=== PATIENT | male | born 1970 | race Caucasian/White ===

== ENCOUNTER 2017-09-28 07:58 | Observation (INO) | payer OTHER ==
[2017-09-28] MEDS ORDERED: NS 1,000 ML IV ONE ×2 (08:15)
--- NOTE | 2017-09-28 08:21 | CPEKG ---
Heart Rate: 85 RR Interval: 706 P-R Interval: 168 QRSD Interval: 94 QT Interval: 372 QTC Interval: 443 P [place]: 53 QRS [place]: 42 T Wave [place]: 8 EKG Severity - NORMAL ECG - EKG Impression: SINUS RHYTHM Electronically Signed By: Ishaan Gordon 28-Sep-2017 08:30:21
--- NOTE | 2017-09-28 08:26 | EDPHY ---
H & P Time Seen by Provider: 09/28/17 08:00 HPI/ROS: HPI Lightheaded, passed out. 46-year-old male by private vehicle with his . This patient reports that he takes lisinopril for hypertension. He reports that he missed the last 1-2 days. He reports that he was at home drinking last night and had 5-6 shots of vodka. He reports the because he missed the last 2 days of his lisinopril he took 2 extra doses, 20 mg tablets, last night. He then went to sleep at around 8:00 p.m. 10 9:00 p.m.. He got up early this morning to go to the bathroom. He was sitting on the toilet, then stood up, had sudden onset lightheadedness, loss consciousness and fell hitting his right flank on the side of the bathtub. His found him in the bathroom sitting up against the bathtub. No witnessed seizure activity. He denies any associated chest pain, no associated palpitations, no shortness of breath, no headache. Denies neck pain. He did not strike his head. No loss of sensation or weakness in his extremities. He reports he was concerned about his blood pressure last night because he has been under a lot of stress lately at work. This is why he took 2 extra lisinopril tablets at that time. ROS: Constitutional: No fever, no chills. As above. Eyes: No discharge. No changes in vision. ENT: No sore throat. No nasal congestion or rhinorrhea. Respiratory: No cough. No shortness of breath. Cardiac: Right sided chest wall pain, no palpitations. Gastrointestinal: No abdominal pain, no vomiting, no diarrhea. Genitourinary: No hematuria. No dysuria or increased frequency with urination. Musculoskeletal: As above. No neck pain. Denies extremity pain. Skin: No rashes. Neurological: No headache. No focal weakness or altered sensation. Past medical history: Hypertension. Social history: He reports drinking 4-6 shots of vodka nightly. He admits to doing this for some time. He does not smoke. He denies IV drugs or street drugs. He is here with his girlfriend. Physical Exam: General Appearance: Alert, he is not in distress. Mildly anxious. This patient is responding to questions appropriately and in full sentences. This patient appears well-hydrated and well-nourished. Head: Normocephalic atraumatic. Face: Facial bones are stable on palpation. Eyes: Pupils equal and round and reactive to light, no pallor or injection. No lid erythema or edema. ENT, Mouth: Mucous membranes and lips are dry. Dentition is intact. No malocclusion of the jaw. No tongue lacerations or abrasions. Pharynx is clear. The bilateral nasal canals are clear. No septal hematoma. Respiratory: There are no retractions, lungs are clear to auscultation with good air movement bilaterally. Chest wall is stable to AP and lateral palpation. Cardiovascular: Regular rate and rhythm. No murmur. Gastrointestinal: Abdomen is soft and nontender, no masses, bowel sounds normal. Neurological: Motor sensory function is intact. Cranial nerves are normal. Cerebellar function intact. Skin: Warm and dry, no rashes. No lacerations, abrasions or contusions. Musculoskeletal: Neck is supple and nontender. The trachea is midline. No midline cervical, thoracic, lumbar or sacral tenderness on palpation. No flank tenderness on palpation. Right-sided CVA tenderness and right-sided lower posterior lateral rib tenderness on palpation at the posterior axillary line. No bony step-off or deformity noted on palpation of this area but he is quite tender on palpation. No associated ecchymosis or edema. Extremities are symmetrical, full range of motion. All joints in the bilateral upper and bilateral lower extremities range without pain or impingement. No tenderness on palpation of the long bones in the bilateral upper and bilateral lower extremities. Psychiatric: No agitation. No depression. Database: EKG: EKG time is 8:19 a.m.; EKG shows a narrow complex normal sinus rhythm with a ventricular rate of 85. The CA, QRS, QT intervals are within normal limits. There are no ST-T wave changes indicative of ischemic or injury pattern. No evidence of right heart strain. No evidence of WPW, Brugada syndrome, hypertrophic cardiomyopathy. Interpreted by me. Imaging: Right-sided rib series with PA chest: Significant for displaced fractures involving the 8th and 9th ribs and nondisplaced fractures involving the 6th and 7th ribs. Some subcutaneous air is seen associated with these fractures. There is a subtle apical opacity seen on one view which may represent a small pneumothorax. Results were discussed with staff radiologist Dr. Robin Lopez. Dr. Lopez recommends a CT scan to further clarify the patient's injuries. CT abdomen and pelvis without contrast: Significant for rib fractures 6. Through 11 right-sided posterior lateral. Ribs 8 and 9 are displaced. Subcutaneous emphysema is noted in the area of the rib fractures. A small pneumothorax is noted on the right side as well. The liver and kidney on the right side appear unremarkable. Lytes were discussed with staff radiologist Dr. Tonio Santa. Procedures: Emergency department course: Vital signs reviewed. He is hypotensive at 82/61 on initial triage blood pressure. Vital signs are otherwise normal. IV was placed. He was placed on a monitor. EKG obtained and reviewed by myself. He will be started on IV normal saline secondary to hypotension and dehydration. He will be given 1-2 L over the next 1-[address] imaging to evaluate for possible renal injury verses rib fracture this/hemo/pneumothorax. 9:05 a.m., patient now declines CT imaging. He is concerned about cost. Imaging will be changed to right-sided rib series with PA chest x-ray. We are waiting on a urinalysis as well. Repeat blood pressure is 110/78. The patient has had 1 L of IV normal saline. He is starting on his 2nd. I discussed results of his EKG and blood work with him. I discussed my concern about his elevated creatinine and the need for follow-up regarding this. 10:15 a.m., patient re-evaluated. Pain is currently well controlled. I discussed the results of his blood work and urinalysis. Results of his rib series x-ray and diagnosis of rib fractures discussed. I recommended CT scan to further characterize his injuries. He is not sure he wants to do this. He would like to speak with 1 of our billing personnel to inquire as to what is covered under his insurance. 10:30 a.m., patient consents now to CT imaging. He will be sent shortly. 11:30 a.m., patient re-evaluated. Results of CT imaging discussed. He is now electing to be admitted for pain control and observation overnight as well as recheck of his pneumothorax in the morning. 11:45 a.m., spoke with Dr. Everton Reinoso, trauma surgeon on-call. Case discussed in detail. He accepts this patient for transfer to the [facility] Emergency Department and admission to the trauma service. 11:50 a.m., spoke with Dr. Renteria, hospitalist. He will consult on this patient for his renal insufficiency. The patient's remaining emergency department course under my care has been uneventful. I have filled out the appropriate transfer paperwork. He was transferred by private vehicle to [facility] Emergency Department with his who is driving. Differential Diagnosis: The differential diagnosis on this patient includes but is not limited to non intentional lisinopril overdose, right posterior lower rib contusions, rib fractures, renal laceration, pneumothorax. Suicidal ideation, pulmonary embolism, subarachnoid hemorrhage, arrhythmia, acute coronary syndrome unlikely. This represents a partial list of diagnoses considered. These considerations are based on history, physical exam, past history, reassessment and diagnostic testing. Smoking Status: Never smoked Constitutional: Initial Vital Signs Temperature (C) 36.4 C 09/28/17 08:01 Heart Rate 90 09/28/17 08:01 Respiratory Rate 16 09/28/17 08:01 Blood Pressure 82/61 L 09/28/17 08:01 O2 Sat (%) 96 09/28/17 08:01 O2 Delivery Mode Room Air Allergies/Adverse Reactions: No Known Allergies Allergy (Verified 09/28/17 08:01) Home Medications: Medication Instructions Recorded Lisinopril [Zestril 20 mg (*)] 20 mg PO DAILY 02/16/16 Amphet Asp and D/Amphet [Adderall 10 mg PO DAILY PRN 09/28/17 20 mg (*)] Aspirin [Aspirin 325 mg (*)] 325 mg PO DAILY PRN 09/28/17 Finasteride [Proscar 5 MG (*)] 5 mg PO DAILY 09/28/17 Multivitamins [Multivitamin (*)] 1 each PO DAILY 09/28/17 Zolpidem Tartrate [Ambien 5MG (*)] 10 mg PO HS PRN 09/28/17 oxyCODONE/APAP 5/325 [Percocet 1 - 2 tab PO Q4-6PRN PRN 09/28/17 5/325 (*)] Medical Decision Making - Diagnostics Imaging Results: Imaging Impressions Ribs w/Chest X-Ray 09/28/17 09:05 Impression: 1. Displaced fractures involving the posterolateral right eighth and ninth ribs , and suspected nondisplaced posterolateral right sixth and seventh rib fractures. 2. Right lower lobe pulmonary contusion and/or subsegmental atelectasis. 3. Minimal subcutaneous emphysema inferolateral right chest wall, but no pneumothorax is appreciated. Short-term follow-up chest radiography can be considered, as clinically directed. Findings were discussed with Ishaan Gordon MD at 10:10, on 09/28/2017. Chest CT 09/28/17 10:31 Impression: 1. Multiple posterolateral right rib fractures from 6th to the 11th as above. Minimal right pneumothorax. Peripheral atelectasis and contusion right lower lobe. 2. Probable mildly complex exophytic renal cortical cyst left kidney. Recommend ultrasound for further evaluation. 3. Fatty infiltration of the liver. Results called and discussed with Dr. Ishaan Gordon on September 28, 2017 at 1121 hours. - Data Points Laboratory Results: Laboratory Results 09/28/17 08:25 09/28/17 08:25 09/28/17 09/28/17 09/28/17 09:45 08:25 08:25 WBC 11.88 10^3/uL H 10^3/uL (3.80-9.50) RBC 4.46 10^6/uL 10^6/uL (4.40-6.38) Hgb 15.1 g/dL g/dL (13.7-17.5) Hct 41.3 % % (40.0-51.0) MCV 92.6 fL fL (81.5-99.8) MCH 33.9 pg pg (27.9-34.1) MCHC 36.6 g/dL g/dL (32.4-36.7) RDW 11.5 % % (11.5-15.2) Plt Count 278 10^3/uL 10^3/uL (150-400) MPV 9.0 fL fL (8.7-11.7) Neut % (Auto) 80.7 % H % (39.3-74.2) Lymph % (Auto) 13.6 % L % (15.0-45.0) [place] % (Auto) 4.3 % L % (4.5-13.0) Eos % (Auto) 0.1 % L % (0.6-7.6) Baso % (Auto) 0.5 % % (0.3-1.7) Nucleat RBC Rel Count 0.0 % % (0.0-0.2) Absolute Neuts (auto) 9.58 10^3/uL H 10^3/uL (1.70-6.50) Absolute Lymphs (auto) 1.62 10^3/uL 10^3/uL (1.00-3.00) Absolute Monos (auto) 0.51 10^3/uL 10^3/uL (0.30-0.80) Absolute Eos (auto) 0.01 10^3/uL L 10^3/uL (0.03-0.40) Absolute Basos (auto) 0.06 10^3/uL 10^3/uL (0.02-0.10) Absolute Nucleated RBC 0.00 10^3/uL 10^3/uL (0-0.01) Immature Gran % 0.8 % % (0.0-1.1) Immature Gran # 0.10 10^3/uL 10^3/uL (0.00-0.10) Sodium 133 mEq/L L mEq/L (135-145) Potassium 4.1 mEq/L mEq/L (3.5-5.2) Chloride 99 mEq/L mEq/L (97-110) Carbon Dioxide 19 mEq/l L mEq/l (22-31) Anion Gap 15 mEq/L mEq/L (8-16) BUN 20 mg/dL mg/dL (7-23) Creatinine 1.6 mg/dL H mg/dL (0.7-1.3) Estimated GFR 47 Glucose 114 mg/dL H mg/dL (70-100) Calcium 8.7 mg/dL mg/dL (8.5-10.4) Urine Color YELLOW Urine Appearance CLEAR Urine pH 6.0 (5.0-7.5) Ur Specific [place] 1.010 (1.002-1.030) Urine Protein NEGATIVE (NEGATIVE) Urine Ketones NEGATIVE (NEGATIVE) Urine Blood NEGATIVE (NEGATIVE) Urine Nitrate NEGATIVE (NEGATIVE) Urine Bilirubin NEGATIVE (NEGATIVE) Urine Urobilinogen 0.2 EU EU (0.2-1.0) Ur Leukocyte Esterase NEGATIVE (NEGATIVE) Urine RBC 0-1 /hpf /hpf (0-3) Urine WBC 1-3 /hpf /hpf (0-3) Ur Epithelial Cells 1+ /lpf /lpf (NONE-1+) Hyaline Casts 10-15 /lpf H /lpf (0-1) Granular Casts 1-3 /lpf H /lpf (0-1) Urine Mucus 1+ /lpf /lpf (NONE-1+) Urine Glucose NEGATIVE (NEGATIVE) Ethyl Alcohol 62 mg/dL H mg/dL (0-10) Medications Given: Discontinued Medications Hydromorphone HCl (Dilaudid) 0.25 mg IVP EDNOW ONE Stop: 09/28/17 11:49 Last Admin: 09/28/17 12:08 Dose: 0.25 mg Hydromorphone HCl (Dilaudid) 0.25 mg IVP EDNOW ONE Stop: 09/28/17 12:21 Last Admin: 09/28/17 12:26 Dose: 0.25 mg Sodium Chloride (Ns) 1,000 mls @ 0 mls/hr IV ONCE ONE; Wide Open PRN Reason: Protocol Stop: 09/28/17 08:16 Last Admin: 09/28/17 08:31 Dose: 1,000 mls Sodium Chloride (Ns) 1,000 mls @ 0 mls/hr IV ONCE ONE; Wide Open PRN Reason: Protocol Stop: 09/28/17 08:16 Last Admin: 09/28/17 09:15 Dose: 1,000 mls Departure - Departure Disposition: [facility] Inpatient Acute Clinical Impression: Syncope, Dehydration, Multiple fractures of ribs of right side, Pneumothorax on right, Renal insufficiency
[2017-09-28 08:34] LABS: PLATELET COUNT 278 10^3/uL (150-400)
[2017-09-28] MEDS ORDERED: HYDROmorphONE/DILAUDID 2 MG/ML INJ IVP ONE ×2 (11:48→12:20)
[2017-09-28] MEDS ORDERED: ONDANSETRON DISINTEGRATING 4 MG TAB PO PRN (14:35)
[2017-09-28] MEDS ORDERED: ZOLPIDEM TARTRATE 5 MG TAB PO PRN (14:40)
[2017-09-28] MEDS ORDERED: LORazepam 2 MG/ML INJ IVP PRN (14:42)
[2017-09-28] MEDS ORDERED: hydrALAZINE 20 MG/ML VIAL IVP PRN (14:43)
[2017-09-28] MEDS ORDERED: LISINOPRIL 20 MG TAB PO SCH (14:45)
[2017-09-28] MEDS ORDERED: NS 1,000 ML IV SCH (14:45)
--- NOTE | 2017-09-28 14:47 | PDHOSCONS ---
History and Physical - Chief Complaint syncope - History of Present Illness We have been asked by the Trauma team to provide consultation regarding this patient who had syncope and has ARF. This is a 46 yo male who had a syncopal episode after getting up from the toilet this morning and had LOC and suffered polytrauma including rib fx and small pneumothorax. He has a hx of HTN and had missed several doses but took 2 Lisinopril doses in order to catch up yesterday evening. He found his BP to be low and went to bathroom and then had a syncopal episode. No seizure activity. No CP or palpitations Lab data shows mild Leukocytosis and elevated Cr. He is making urine. BP is labile. He has received 2 L NS in the E.d. He is tachy. No e/o of P.E. on imaging. PMHx/PSHx: HTN Soc Hx: drinks ETOH 3-4 x per weeks, 3-5 drinks each time FmHx: CV disease History Information - Allergies/Home Medication List Allergies/Adverse Reactions: No Known Allergies Allergy (Verified 09/28/17 08:01) Home Medications: Lisinopril [Zestril 20 mg (*)] 20 mg PO DAILY 02/16/16 [Last Taken 09/28/17] Amphet Asp and D/Amphet [Adderall 20 mg (*)] 10 mg PO DAILY PRN 09/28/17 [Last Taken Unknown] Aspirin [Aspirin 325 mg (*)] 325 mg PO DAILY PRN 09/28/17 [Last Taken Unknown] Finasteride [Proscar 5 MG (*)] 5 mg PO DAILY 09/28/17 [Last Taken Unknown] Multivitamins [Multivitamin (*)] 1 each PO DAILY 09/28/17 [Last Taken Unknown] Zolpidem Tartrate [Ambien 5MG (*)] 10 mg PO HS PRN 09/28/17 [Last Taken Unknown] oxyCODONE/APAP 5/325 [Percocet 5/325 (*)] 1 - 2 tab PO Q4-6PRN PRN 09/28/17 [ Last Taken 09/27/17] I have personally reviewed and updated: medical history, social history - Social History Smoking Status: Never smoked Review of Systems Review of Systems: ROS: 10pt was reviewed & negative except for what was stated in HPI & below Physical Exam Physical Exam: Temp Pulse Resp BP Pulse Ox 37.0 C 108 H 19 143/93 H 97 09/28/17 13:51 09/28/17 13:51 09/28/17 13:51 09/28/17 13:51 09/28/17 13:51 Constitutional: no apparent distress, not in pain Eyes: PERRL, EOMI Ears, Nose, Mouth, Throat: moist mucous membranes, hearing normal Cardiovascular: regular rate and rhythym, No JVD, No edema Respiratory: no respiratory distress, no rales or rhonchi, clear to auscultation Gastrointestinal: normoactive bowel sounds, soft, non-tender abdomen Genitourinary: no bladder fullness Skin: warm Musculoskeletal: full muscle strength Neurologic: AAOx3 Psychiatric: interacting appropriately, not anxious, not encephalopathic, thought process linear Lymph, Heme, Immunologic: No petechiae Lab Data & Imaging Review 09/28/17 08:25 09/28/17 08:25 WBC 11.88 10^3/uL (3.80-9.50) H 09/28/17 08:25 RBC 4.46 10^6/uL (4.40-6.38) 09/28/17 08:25 Hgb 15.1 g/dL (13.7-17.5) 09/28/17 08:25 Hct 41.3 % (40.0-51.0) 09/28/17 08:25 MCV 92.6 fL (81.5-99.8) 09/28/17 08:25 MCH 33.9 pg (27.9-34.1) 09/28/17 08:25 MCHC 36.6 g/dL (32.4-36.7) 09/28/17 08:25 RDW 11.5 % (11.5-15.2) 09/28/17 08:25 Plt Count 278 10^3/uL (150-400) 09/28/17 08:25 MPV 9.0 fL (8.7-11.7) 09/28/17 08:25 Neut % (Auto) 80.7 % (39.3-74.2) H 09/28/17 08:25 Lymph % (Auto) 13.6 % (15.0-45.0) L 09/28/17 08:25 [place] % (Auto) 4.3 % (4.5-13.0) L 09/28/17 08:25 Eos % (Auto) 0.1 % (0.6-7.6) L 09/28/17 08:25 Baso % (Auto) 0.5 % (0.3-1.7) 09/28/17 08:25 Nucleat RBC Rel Count 0.0 % (0.0-0.2) 09/28/17 08:25 Absolute Neuts (auto) 9.58 10^3/uL (1.70-6.50) H 09/28/17 08:25 Absolute Lymphs (auto) 1.62 10^3/uL (1.00-3.00) 09/28/17 08:25 Absolute Monos (auto) 0.51 10^3/uL (0.30-0.80) 09/28/17 08:25 Absolute Eos (auto) 0.01 10^3/uL (0.03-0.40) L 09/28/17 08:25 Absolute Basos (auto) 0.06 10^3/uL (0.02-0.10) 09/28/17 08:25 Absolute Nucleated RBC 0.00 10^3/uL (0-0.01) 09/28/17 08:25 Immature Gran % 0.8 % (0.0-1.1) 09/28/17 08:25 Immature Gran # 0.10 10^3/uL (0.00-0.10) 09/28/17 08:25 Sodium 133 mEq/L (135-145) L 09/28/17 08:25 Potassium 4.1 mEq/L (3.5-5.2) 09/28/17 08:25 Chloride 99 mEq/L (97-110) 09/28/17 08:25 Carbon Dioxide 19 mEq/l (22-31) L 09/28/17 08:25 Anion Gap 15 mEq/L (8-16) 09/28/17 08:25 BUN 20 mg/dL (7-23) 09/28/17 08:25 Creatinine 1.6 mg/dL (0.7-1.3) H 09/28/17 08:25 Estimated GFR 47 09/28/17 08:25 Glucose 114 mg/dL (70-100) H 09/28/17 08:25 Calcium 8.7 mg/dL (8.5-10.4) 09/28/17 08:25 Urine Color YELLOW 09/28/17 09:45 Urine Appearance CLEAR 09/28/17 09:45 Urine pH 6.0 (5.0-7.5) 09/28/17 09:45 Ur Specific [place] 1.010 (1.002-1.030) 09/28/17 09:45 Urine Protein NEGATIVE (NEGATIVE) 09/28/17 09:45 Urine Ketones NEGATIVE (NEGATIVE) 09/28/17 09:45 Urine Blood NEGATIVE (NEGATIVE) 09/28/17 09:45 Urine Nitrate NEGATIVE (NEGATIVE) 09/28/17 09:45 Urine Bilirubin NEGATIVE (NEGATIVE) 09/28/17 09:45 Urine Urobilinogen 0.2 EU (0.2-1.0) 09/28/17 09:45 Ur Leukocyte Esterase NEGATIVE (NEGATIVE) 09/28/17 09:45 Urine RBC 0-1 /hpf (0-3) 09/28/17 09:45 Urine WBC 1-3 /hpf (0-3) 09/28/17 09:45 Ur Epithelial Cells 1+ /lpf (NONE-1+) 09/28/17 09:45 Hyaline Casts 10-15 /lpf (0-1) H 09/28/17 09:45 Granular Casts 1-3 /lpf (0-1) H 09/28/17 09:45 Urine Mucus 1+ /lpf (NONE-1+) 09/28/17 09:45 Urine Glucose NEGATIVE (NEGATIVE) 09/28/17 09:45 Ethyl Alcohol 62 mg/dL (0-10) H 09/28/17 08:25 Assessment & Plan Assessment: #Syncope, likely due to low BP and orthostatic Hypotension #Dehydration #Acute Renal Failure #Multiple fractures of ribs of right side #Pneumothorax on right #Sinus Tachycardia, likely multifactorial in etiology #Social ETOH use Plan: -Additional IVF -Hold Lisinopril -Hydralazine PRN elevated BP -Check urine studies -pain mgmt -Benzo's for anxiety/agitation/WD -tele -TTE -SCD's -Full code Thank you for this consult. We will follow along
--- NOTE | 2017-09-28 15:02 | GHP ---
[f rep st] HISTORY AND PHYSICAL DATE OF ADMISSION: 09/28/2017 CHIEF COMPLAINT: Right lower rib pain. PRESENT ILLNESS: A 46-year-old male who fell in the bathroom when arising from the toilet earlier th is morning and fell against the tub. His eventually drove him to Urgent Care. A CT scan showed 4 minimally displaced rib fractures on the right posterior lower aspect of the chest. No liver inju ry, miniscule apex pneumothorax seen on CT, and the above-mentioned rib fractures. No hemothorax. A tiny amount of subcutaneous emphysema is noted. ALLERGIES: None. CURRENT MEDICATIONS: Lisinopril, Adderall. PAST SURGICAL HISTORY: Tonsillectomy, tubes in the ears. SOCIAL HISTORY: Employed in software specialist. Nonsmoker. Alcohol every other day, 2-4 drinks of [facility] wine or whiskey. REVIEW OF SYSTEMS: Patient denies asthma, heart trouble, heart attacks, diabetes, epilepsy, rheumati c fever. PHYSICAL EXAM: HEENT: Head is atraumatic. No scleral icterus. Pharynx clear. NECK: Supple witho ut adenopathy. No supraclavicular or axillary crepitus. Clavicles are intact. LUNGS: Clear. HEAR T: Normal S1, S2 without murmur. ABDOMEN: Soft, benign. Pelvis stable to compression. Tenderness along the right posterior ribs. LOWER EXTREMITIES: Unremarkable, atraumatic. ASSESSMENT: Fall at home. The patient states he had missed his lisinopril for several days, took 2 pills Monday to catch up, and this might have led to an episode of orthostatic hypotension. He ramirez s not taken lisinopril today and is hypertensive. I have reviewed his CT scans. I have recommended a followup chest x-ray at 5 p.m. to rule out any expanding pneumothorax. There is no indication for chest tube right now. We will put him on some [place] and see how he does with pain overnight, and murali uld his chest x-ray remain only a miniscule pneumothorax, it might be appropriate to discharge him to [facility] if his pain is tolerable on a p.o. regimen. /[id number]/MODL
[2017-09-28] MEDS: HYDROCODONE/APAP 5/325 TAB PO PRN ×2 (15:19→22:21)
[2017-09-28 17:27] LABS: INR 1.03 (0.83-1.16); PROTIME(PATIENT) 13.7 SEC (12.0-15.0)
[2017-09-29 04:42] LABS: PLATELET COUNT 161 10^3/uL (150-400)
[2017-09-29] MEDS: HYDROCODONE/APAP 5/325 TAB PO PRN ×2 (08:31→15:08)
[2017-09-29] MEDS ORDERED: KETOROLAC 30 MG/1 ML SDV IVP ONE (08:46)
--- NOTE | 2017-09-29 08:51 | TRAUMAPN ---
Trauma Progress Note Assessment/Plan: Tertiary survey This is a 47-year-old gentleman who doubled up on his antihypertensive lisinopril on the night prior to admission. He then went to the bathroom. [place] dizzy and fell and struck his right side against the toilet. He sustained rib fractures and a small apical pneumothorax which has been stable since his hospitalization. Last chest x-ray last night showed no increase in size of pneumothorax or pleural fluid The patient has pain which is controlled with IV morphine and [place]. No NSAID was started due to acute renal failure on admission with a creatinine of 1.6. His repeat creatinine after hydration was 0.9 and this morning 0.8. He is currently stable without signs of any renal insufficiency. Alert oriented no distress Extraocular motions intact Trachea midline Moderate pain with palpation of posterior right chest. The rest of the chest is stable to anterior and lateral compression lungs are clear no crepitus no wheezes regular heart tones No long bone deformities Good muscle strength range of motion all 4 extremities No global of focal signs of neurologic deficit Blood pressure between 127 and 132 systolic without lisinopril Discussed with Medicine regarding overall care plan and nonsteroidal will be started Hold on lisinopril Monitor pain medication with current regimen with addition of nonsteroidal Possible DC later on today. No further chest x-ray Objective: Vital Signs Temp Pulse Resp BP Pulse Ox 36.7 C 79 18 132/88 H 98 09/29/17 07:31 09/29/17 07:31 09/29/17 04:00 09/29/17 07:31 09/29/17 07:31 Laboratory Results 09/29/17 04:15 09/29/17 04:15 09/28/17 09/29/17 09/30/17 05:59 05:59 05:59 Intake Total 2000 Output Total 300 400 Balance 1700 -400 PT 13.7 SEC (12.0-15.0) 09/28/17 16:30 INR 1.03 (0.83-1.16) 09/28/17 16:30
[2017-09-29] MEDS ORDERED: FINASTERIDE 5 MG TAB PO SCH (09:00)
--- NOTE | 2017-09-29 09:14 | ASMTCASEMG ---
Living Arrangements What is your living Answers: With Spouse arrangement? Who do you live with? Type Of Residence What kind of residence do Answers: House you live in? Discharge Plan Comments Coordination Status Comments Notes: Pt is a 46 y/o man admitted for multiple rib fractures and a small apical pneumothorax. Pt will most likely d/c independent when medically stable. No therapies ordered at this time. CM available for changes. Plan: Independent Date Signed: 09/29/2017 09:14 AM Electronically Signed By:NACHO Chapa
[2017-09-29 11:21] VITALS: RESP 16
--- NOTE | 2017-09-29 14:36 | ECHO ---
[email or web address] [address] [address] Main: [phone] Fax: Transthoracic Echocardiogram Name: ALEXIS MAYNARD MR#: [id number] Study Date: 09/28/2017 Study Time: 03:22 PM Date of : 1970 Age: 46 year(s) Height: 180.3 cm (71 in.) Weight: 79.38 kg (175 lb.) BSA: 1.99 m2 Gender: Male Examination: Echo Indication: Syncope/fractured ribs Image Quality: Contrast: Requested by: Kevin Roman BP: 143 mmHg/93 mmHg Heart Rate: Rhythm: Indication: Syncope/fractured ribs Procedure Staff Vice Chairman: Aria Bergeron RDCS Reading Physician: Kevin Vance MD Requesting Provider: Conclusions: Normal size left ventricle. No LV hypertrophy. Global hypercontractility of the left ventricle. The ejection fraction is estimated to be 70-75 %. No regional wall motion abnormality. Grade 1 diastolic dysfunction (abnormal relaxation). No pericardial effusion. Measurements: Chambers Valvular Assessment AV/MV Valvular Assessment TV/PV Normal Normal Normal Name Value Range Name Value Range Name Value Range Ao Rashida (MM): 3.8 cm (2.2 cm-3.7 AV meanP mmHg ( - ) cm) MV E Vmax: 0.61 m/s ( - ) IVSd (2D): 0.8 cm (0.6 cm-1.1 MV A Vmax: 0.76 m/s ( - ) cm) MV E/A: 0.80 ( - ) LVDd (2D): 5.1 cm (4.2 cm-5.9 cm) LVDs (2D): 3.1 cm (2.1 cm-4 cm) LVPWd (2D): 1.0 cm (0.6 cm-1 cm) LVEF (2D): 69 (>=54 %) EF Range: 70-75 % Continued Measurements: Chambers Valvular Assessment AV/MV Name Value Name Value LADs: 3.5 cm MV E/E' Septal: 7.00 Patient: ALEXIS MAYNARD Study Date: 09/28/2017 Page 1 of 2 03:22 PM MV E/E' Lateral: 5.00 Findings: Left Ventricle: Normal size left ventricle. No LV hypertrophy. Global hypercontractility of the left ventricle. The ejection fraction is estimated to be 70-75 %. No regional wall motion abnormality. Grade 1 diastolic dysfunction (abnormal relaxation). Right Ventricle: Normal size right ventricle. Normal RV function. Left Atrium: The left atrium is normal in size. Right Atrium: The right atrium is normal in size. Mitral Valve: The mitral valve is normal in appearance and function. Aortic Valve: The aortic valve is normal in appearance and function. Tricuspid Valve: The tricuspid valve is normal in appearance and function. Pulmonic Valve: The pulmonic valve is normal in appearance and function. Aorta: The aorta is normal. Pericardium: No pericardial effusion. (No Signature Object) Patient: ALEXIS MAYNARD Study Date: 09/28/2017 Page 2 of 2 03:22 PM [id number]
[2017-09-29] MEDS ORDERED: KETOROLAC 15 MG/1 ML SDV IVP SCH (15:00)
[2017-09-29 15:44] VITALS: BP 142/97; PULSE 80; TEMP 98.5; O2SAT 94
--- NOTE | 2017-09-29 16:47 | ASMTCMCOM ---
CM Note CM Note Notes: Attempted to meet with patient to complete CAGE screen (+) SBIRT. Patient unavailable, meeting with MD. CM will follow-up and complete when able. Date Signed: 09/29/2017 04:46 PM Electronically Signed By:Yovana Sandhu RN
--- NOTE | 2017-09-29 17:12 | PDDCSUM ---
Discharge Summary Discharge Summary: This is a 47-year-old gentleman who presented to the hospital after fall from standing height onto the side of the toilet. He sustained rib fractures and small pneumothorax all of which were treated conservatively. The patient admits to doubling up on his lisinopril to compensate for not taking it the week before. He became lightheaded and fell. He denies loss of consciousness at the time of injury he has no other significant issues. On discharge she is back to his baseline cardiac status. Pulmonary morejon he has incentive spirometer saturating 98% on room air his lungs are clear he has mild tenderness in the posterior right chest On admission renal function showed creatinine of 1.6 which after hydration has returned to baseline of less than 0.8 He is currently expressing desire to go home. He has stable medical issues. Medications at home include Lisinopril [Zestril 20 mg (*)] 20 mg PO DAILY 02/16/16 [Last Taken 09/28/17] Amphet Asp and D/Amphet [Adderall 20 mg (*)] 10 mg PO DAILY PRN 09/28/17 [Last Taken Unknown] Aspirin [Aspirin 325 mg (*)] 325 mg PO DAILY PRN 09/28/17 [Last Taken Unknown] Finasteride [Proscar 5 MG (*)] 5 mg PO DAILY 09/28/17 [Last Taken Unknown] Multivitamins [Multivitamin (*)] 1 each PO DAILY 09/28/17 [Last Taken Unknown] Zolpidem Tartrate [Ambien 5MG (*)] 10 mg PO HS PRN 09/28/17 [Last Taken Unknown] oxyCODONE/APAP 5/325 [Percocet 5/325 (*)] 1 - 2 tab PO Q4-6PRN PRN 09/28/17 [ Last Taken 09/27/17] Percocet will be discontinued Lisinopril will be held and he will monitor his blood pressure daily and report to his primary care physician for review next week Oxycodone, ibuprofen and Tylenol will be recommended for discharge. The patient knows to call or concerns for deterioration of his condition shortness of breath increased chest pain not controlled by medication. The patient and his verbalized their understanding. All issues were addressed prior to discharge
--- NOTE | 2017-09-30 16:15 | GPROG ---
[f rep st] PROGRESS NOTE DATE OF SERVICE: 09/29/2017 SUBJECTIVE: Followup on syncopal episode and acute kidney injury. I reviewed with patient his kidney function did return to normal. I discussed with him that we may w ant to temporarily hold his lisinopril in leaving the hospital and have him check readings at home fo r the next 1-2 weeks and bring this to his primary care provider's office for review to determine if any dose adjustments need to be made or if he could potentially be off lisinopril. With the creatini ne just normalizing and being on NSAIDs to address his rib pain, I think it is probably safer to be o ff lisinopril at this point time. I reviewed his case this morning with Dr. Briggs, and the patient 's was present at the bedside as well for our discussion. OBJECTIVE: VITAL SIGNS: Temperature afebrile. Systolic blood pressures ranging between 110 and 130 . Heart rate within normal limits. GENERAL: Patient resting comfortably in bed. He is sitting up, awake, alert, conversant, and in no acute distress. HEART: Regular. No murmurs. LUNGS: Clear to auscultation. Normal respiratory effort. ABDOMEN: Soft, nontender, nondistended. : No Restrepo ca theter in place. EXTREMITIES: No significant pitting edema. LABORATORY DATA: Sodium 140, potassium 4.1, chloride 102, bicarb 28, BUN 13, creatinine 0.8, glucose 84. White blood cell count 7, hemoglobin 13, platelets 161. ASSESSMENT AND PLAN: 1. Syncope: Patient may have had a syncopal episode secondary to volume depletion as well as doublin g up on his lisinopril dosing after missing for a few days; no recurrence during this hospitalization . 2. Acute kidney injury: Resolved, likely a component of volume depletion as well as TITO inhibitor. 3. Rib pain: Seems well controlled today with current non-steroidal anti-inflammatories. 4. Pneumothorax: Small by imaging. Patient will have outpatient surgery followup. DISPOSITION: I reviewed the potential discharge today with Dr. Briggs this morning, and from a medi curtis standpoint, I feel comfortable with him returning home; although, I have recommended that he hold his lisinopril and check 2 3 readings a day for the next 1-2 weeks and schedule a followup visit wit h his primary care provider to reassess his antihypertensive therapy. Patient appeared to understand quite well the plan. His , present at the bedside, did concur as well. TIME SPENT: 40 minutes of time dedicated to patient care today, over 50% of which dedicated to couns eling and coordination of care. /[id number]/MODL
== END 2017-09-29 17:47 | disposition home or self-care (01) ==
LOC: CED 07:58 → CEDHOLD 11:42 → F3N 13:28
PROVIDERS: ADMIT Surgery; ATTEND Surgery
DX: R55 Syncope and collapse (principal); S22.41XA Multiple fractures of ribs, right side, initial encounter for closed fracture; S27.0XXA Traumatic pneumothorax, initial encounter; E86.0 Dehydration; I95.1 Orthostatic hypotension; N17.9 Acute kidney failure, unspecified; R00.0 Tachycardia, unspecified; W19.XXXA Unspecified fall, initial encounter; W22.8XXA Striking against or struck by other objects, initial encounter; Y92.012 Bathroom of single-family (private) house as the place of occurrence of the external cause; Y99.8 Other external cause status; I10 Essential (primary) hypertension; F10.10 Alcohol abuse, uncomplicated
CPT/HCPCS: 71045; 71101; 71250; 93005; 93306; G0378; 80048-PO; 81003-PO; 81015-PO; 85025-PO; 96374; G0480; J1170; J1885; J2270